=== PATIENT | male | born 1975 | race Caucasian/White ===

== ENCOUNTER 2016-12-24 09:10 | Observation (INO) | payer OTHER ==
[~2016-12-24] VITALS: Ht 195.6 cm; Wt 128.6 kg
[~2016-12-24 09:10] MED LIST: ATROVENT 00.5 MG/2.5 IH; BUSPAR10 MG PO; CARAFATE1 GM PO; CELEXA20 MG PO; CELEXA40 MG PO; CITALOPRAM HBR20 MG PO; CLONAZEPAM0.5 MG PO; CLONAZEPAM1 MG PO; COMBIVENT RESPIM4 GM IH; COUMADIN10 MG PO; DESYREL100 MG PO; DOCUSATE SODIU100 MG PO; GEODON20 MG PO; HYDROCODON-ACE1 EAC7 PO; KLONOPIN0.5 M1 PO; KLONOPIN1 MG PO; LIBRIUM25 MG PO; MIRALAX17 GM PO; NEXIUM40 MG PO; NORCO 5/3251 TABLET PO; OMEPRAZOLE40 M1 PO; PERCOCET 5/31 TABLET PO; PREDNISONE20 MG PO; PRILOSEC40 MG PO; PROMETHAZINE12.5 M1 PO; RANITIDINE HCL150 MG PO; SUCRALFATE1 GM PO; TYLENOL REGULA325 MG PO; WARFARIN SODIUM10 MG PO; WARFARIN SODIUM3 MG PO; WARFARIN SODIUM6 MG PO; XANAX1 MG PO; ZANTAC150 MG PO
[2016-12-24] MEDS ORDERED: WARFARIN SODIUM1 MG PO ×2 (09:39→14:52)
[2016-12-24 09:55] LABS: EOSINOPHIL (%) 0.7 % (0-5); EOSINOPHIL COUNT 0.1 K/uL (0-0.3); HEMATOCRIT 44.4 % (38.0-50.0); IMMATURE GRANULOCYTE (%) 1.3 % (0.0-0.7); IMMATURE GRANULOCYTE COUNT 1.1 K/uL; LYMPHOCYTE COUNT 2.2 K/uL (1.0-2.8); MCHC 35.6 G/DL (30.0-36.0); MCV 84.4 FL (86-99); MEAN PLAT.VOLUME 10.7 uM^3 (9.0-12.4); MONOCYTE (%) 8.2 % (3-12); MONOCYTE COUNT 0.7 K/uL (0-0.8); NEUTROPHIL (%) 63.1 % (45-76); NEUTROPHIL COUNT 5.2 K/uL (1.8-6.4); PLATELET COUNT 288 K/uL (156-360); RBC DIS.WIDTH-SD 46.3 % (39-53); RED BLOOD COUNT 5.26 M/uL (4.00-5.50); WHITE BLOOD COUNT 8.3 K/uL (4.1-10.2)
[2016-12-24 10:06] LABS: CHLORIDE 105 mEq/L (99-109); SODIUM 137 mEq/L (136-147)
[2016-12-24 10:07] LABS: GLUCOSE 90 mg/dL (70-99)
[2016-12-24 10:09] LABS: ANION GAP 15 MEQ/L (2-14)
[2016-12-24 10:11] LABS: GFR ESTIMATE (CALCULATED) > 59 mL/min/; SERUM ETHYL ALCOHOL 76 mg/dL
[2016-12-24 10:12] LABS: UREA NITROGEN (BUN) 9 mg/dL (9-23)
[2016-12-24 10:14] LABS: CREATINE KINASE 141 IU/L (1-294)
[2016-12-24 10:15] LABS: D-DIMER ELISA < 0.15 mg/L FEU (< 0.57); INTER. NORMALIZED RATIO 2.5; PROTHROMBIN TIME 25.9 (9.2-11.2); PTT 37.7 (25-32)
[2016-12-24 10:19] LABS: TROP-I INTERPRETATION NEGATIVE; TROPONIN-I < 0.01 ng/mL (0.0-0.30)
[2016-12-24 12:52] LABS: TROP-I INTERPRETATION NEGATIVE; TROPONIN-I < 0.01 ng/mL (0.0-0.30)
[2016-12-24] MEDS ORDERED: SERTRALINE HCL100 MG PO (12:52)
[2016-12-24] MEDS ORDERED: GABAPENTIN300 MG PO (12:54)
[2016-12-24] MEDS ORDERED: TIZANIDINE HCL4 M1 PO (12:54)
[2016-12-24] MEDS ORDERED: COMBIVENT RESPIM4 GM IH (12:59)
[2016-12-24] MEDS ORDERED: NEURONTIN300 MG PO (13:02)
[2016-12-24] MEDS ORDERED: WARFARIN SODIUM10 MG PO (14:52)
[2016-12-24] MEDS ORDERED: DEPAKOTE500 MG PO (14:57)
[2016-12-24 17:18] VITALS: BP 137/83
[2016-12-24 19:30] VITALS: BP 136/80
[2016-12-24 19:47] LABS: TROP-I INTERPRETATION NEGATIVE; TROPONIN-I < 0.01 ng/mL (0.0-0.30)
[2016-12-24 20:44] VITALS: BP 134/79
[2016-12-24 23:42] VITALS: BP 117/72
[2016-12-25 00:49] LABS: TROP-I INTERPRETATION NEGATIVE; TROPONIN-I < 0.01 ng/mL (0.0-0.30)
[2016-12-25 04:28] VITALS: BP 102/55
[2016-12-25 06:24] LABS: INTER. NORMALIZED RATIO 2.9; PROTHROMBIN TIME 30.8 (9.2-11.2)
[2016-12-25 07:37] VITALS: BP 112/76
[2016-12-25] MEDS ORDERED: LIPITOR40 MG PO (09:38)
[2016-12-25 11:20] VITALS: BP 102/62
== END 2016-12-25 10:56 | disposition home or self-care (01) ==
LOC: EME 09:10 → EDOF 14:31 → 5WEST 14:31 → EDOF 14:31 → 5WEST 17:07
PROVIDERS: Emergency Medicine; Internal Medicine
DX: R07.9 Chest pain, unspecified (principal); D68.51 Activated protein C resistance; Z86.711 Personal history of pulmonary embolism; G89.29 Other chronic pain; F41.8 Other specified anxiety disorders; Z79.01 Long term (current) use of anticoagulants; K22.70 Barrett's esophagus without dysplasia; K21.9 Gastro-esophageal reflux disease without esophagitis; J44.9 Chronic obstructive pulmonary disease, unspecified; F17.200 Nicotine dependence, unspecified, uncomplicated; F43.10 Post-traumatic stress disorder, unspecified; F10.21 Alcohol dependence, in remission; Z81.8 Family history of other mental and behavioral disorders; Z88.1 Allergy status to other antibiotic agents; Z91.030 Bee allergy status
CPT/HCPCS: 71010; 71020; 80048; 80306 90; 82550; 84484; 85025; 85379; 85610; 85730; 93005; 94640; 99202; 99281; 99285; G0378; G0480; J3010

== ENCOUNTER 2017-01-14 09:52 | Emergency (ER) | payer OTHER ==
[~2017-01-14] VITALS: Ht 195.6 cm; Wt 132.1 kg
[~2017-01-14 09:52] MED LIST changes: +DEPAKOTE500 MG PO; +GABAPENTIN300 MG PO; +LIPITOR40 MG PO; +NEURONTIN300 MG PO; +SERTRALINE HCL100 MG PO; +TIZANIDINE HCL4 M1 PO; +WARFARIN SODIUM1 MG PO
[2017-01-14 11:02] LABS: HEMATOCRIT 44.2 % (38.0-50.0); MCH 29.9 PG (29.0-34.0); MCHC 34.2 G/DL (30.0-36.0); MCV 87.5 FL (86-99); PLATELET COUNT 225 K/uL (156-360); RBC DIS.WIDTH-CV 15.2 % (11.8-14.6); RBC DIS.WIDTH-SD 48.6 % (39-53); RED BLOOD COUNT 5.05 M/uL (4.00-5.50); WHITE BLOOD COUNT 7.8 K/uL (4.1-10.2)
[2017-01-14 11:06] LABS: ANION GAP 10 MEQ/L (2-14); CHLORIDE 108 MEQ/L (99-109); GFR ESTIMATE (CALCULATED) > 59 mL/min/; GLUCOSE 97 mg/dL (70-99); SAMPLE HEMOLYSIS CHECK 1; SAMPLE ICTERIC CHECK 0; SAMPLE LIPEMIA CHECK 0; SODIUM 140 MEQ/L (136-147); UREA NITROGEN (BUN) 13 mg/dL (9-23)
[2017-01-14 11:07] LABS: POTASSIUM 4.3 MEQ/L (3.7-5.4)
[2017-01-14 12:11] LABS: ADD MIUA? YES; BILIRUBIN NEGATIVE; BLOOD SMALL; COLOR STRAW ((YELLOW)); GLUCOSE (STRIP) NEGATIVE; KETONES NEGATIVE; LEUKOCYTES NEGATIVE; NITRITE NEGATIVE; PROTEIN (STRIP) NEGATIVE; SPECIFIC GRAVITY 1.005 (1.000-1.030); UROBILINOGEN 0.2 MG/DL (0.2-1.0)
[2017-01-14 12:25] LABS: BACTERIA NONE SEEN /HPF; EPITHELIAL CELLS NONE SEEN /HPF; MUCUS NONE SEEN /LPF; RED BLOOD CELLS 0-5 /HPF (0-5); WHITE BLOOD CELLS 0-5 /HPF (0-5)
[2017-01-14 13:05] LABS: INTER. NORMALIZED RATIO 2.2; PROTHROMBIN TIME 22.9 (9.2-11.2); PTT 32.5 (25-32)
[2017-01-14 13:45] VITALS: BP 134/93
== END 2017-01-14 13:45 | disposition home or self-care (01) ==
LOC: RME 09:52 → EME 09:52 → RME 13:45
PROVIDERS: Physician Assistant
DX: R04.2 Hemoptysis (principal); R10.12 Left upper quadrant pain; Z79.01 Long term (current) use of anticoagulants; D68.51 Activated protein C resistance; Z86.711 Personal history of pulmonary embolism; Z86.718 Personal history of other venous thrombosis and embolism; J44.9 Chronic obstructive pulmonary disease, unspecified; J45.909 Unspecified asthma, uncomplicated; F17.200 Nicotine dependence, unspecified, uncomplicated
CPT/HCPCS: 71275; 74177; 80048; 81003; 85025; 85027; 85610; 85730; 86850; 86900; 86901; 99281; 99284

== ENCOUNTER 2017-02-12 18:22 | Emergency (ER) | payer OTHER ==
[~2017-02-12] VITALS: Ht 195.6 cm; Wt 131.8 kg
[2017-02-12 22:06] LABS: EOSINOPHIL (%) 0.8 % (0-5); EOSINOPHIL COUNT 0.1 K/uL (0-0.3); HEMATOCRIT 40.5 % (38.0-50.0); IMMATURE GRANULOCYTE (%) 0.7 % (0.0-0.7); IMMATURE GRANULOCYTE COUNT 0.1 K/uL; INSTRUMENT ABS NEUTROPHIL CT 5.8 K/uL; LYMPHOCYTE COUNT 2.7 K/uL (1.0-2.8); MCHC 33.8 G/DL (30.0-36.0); MCV 88.6 FL (86-99); MEAN PLAT.VOLUME 11.1 uM^3 (9.0-12.4); MONOCYTE (%) 10.9 % (3-12); MONOCYTE COUNT 1.1 K/uL (0-0.8); NEUTROPHIL (%) 59.4 % (45-76); NEUTROPHIL COUNT 5.8 K/uL (1.8-6.4); PLATELET COUNT 221 K/uL (156-360); RBC DIS.WIDTH-CV 16.2 % (11.8-14.6); RBC DIS.WIDTH-SD 52.8 % (39-53); RED BLOOD COUNT 4.57 M/uL (4.00-5.50); WHITE BLOOD COUNT 9.7 K/uL (4.1-10.2)
[2017-02-12 22:14] LABS: CHLORIDE 104 mEq/L (99-109); POTASSIUM 3.7 mEq/L (3.7-5.4); SODIUM 138 mEq/L (136-147)
[2017-02-12 22:17] LABS: GLUCOSE 73 mg/dL (70-99)
[2017-02-12 22:18] LABS: ANION GAP 13 MEQ/L (2-14)
[2017-02-12 22:19] LABS: TOTAL BILIRUBIN 0.3 mg/dL (0.0-1.0)
[2017-02-12 22:20] LABS: ALKALINE PHOSPHATASE 77 IU/L (3-129)
[2017-02-12 22:21] LABS: GFR ESTIMATE (CALCULATED) > 59 mL/min/
[2017-02-12 22:22] LABS: DIRECT BILIRUBIN 0.1 mg/dL (0.0-0.3); UREA NITROGEN (BUN) 18 mg/dL (9-23)
[2017-02-12 22:24] LABS: LIPASE 29 U/L (1.0-51.0)
[2017-02-12 23:02] LABS: INTER. NORMALIZED RATIO 2.2; PROTHROMBIN TIME 22.8 (9.2-11.2); PTT 36.6 (25-32)
[2017-02-13 07:03] VITALS: BP 135/80
== END 2017-02-13 07:07 ==
LOC: EME 18:22
PROVIDERS: Emergency Medicine
DX: R56.9 Unspecified convulsions (principal); F10.20 Alcohol dependence, uncomplicated; S80.211A Abrasion, right knee, initial encounter; S00.81XA Abrasion of other part of head, initial encounter; W18.39XA Other fall on same level, initial encounter; R00.0 Tachycardia, unspecified; D68.51 Activated protein C resistance; Z86.711 Personal history of pulmonary embolism; Z86.718 Personal history of other venous thrombosis and embolism; Z79.01 Long term (current) use of anticoagulants; J44.9 Chronic obstructive pulmonary disease, unspecified; J45.909 Unspecified asthma, uncomplicated; F17.200 Nicotine dependence, unspecified, uncomplicated
CPT/HCPCS: 70450; 72125; 73564; 80048; 80076; 83690; 85025; 85610; 85730; 99281; 99284; J1200; J2060; J2765; J7030

== ENCOUNTER 2017-02-14 11:35 | Emergency (ER) | payer OTHER ==
[~2017-02-14] VITALS: Ht 195.6 cm; Wt 132.0 kg
[2017-02-14 12:40] VITALS: BP 131/87
== END 2017-02-14 12:40 | disposition home or self-care (01) ==
LOC: EME 11:35
DX: F41.9 Anxiety disorder, unspecified (principal); Z73.3 Stress, not elsewhere classified; J44.9 Chronic obstructive pulmonary disease, unspecified; J45.909 Unspecified asthma, uncomplicated; Z86.711 Personal history of pulmonary embolism; Z86.718 Personal history of other venous thrombosis and embolism; Z79.01 Long term (current) use of anticoagulants; F17.200 Nicotine dependence, unspecified, uncomplicated
CPT/HCPCS: 99281; 99283

== ENCOUNTER 2017-04-24 13:44 | Emergency (ER) | payer OTHER ==
[~2017-04-24] VITALS: Ht 195.6 cm; Wt 138.3 kg
[2017-04-24 15:22] LABS: MCH 28.5 PG (29.0-34.0); MCHC 33.3 G/DL (30.0-36.0); MCV 85.7 FL (86-99); MEAN PLAT.VOLUME 10.3 uM^3 (9.0-12.4); PLATELET COUNT 275 K/uL (156-360); RBC DIS.WIDTH-CV 15.3 % (11.8-14.6); RBC DIS.WIDTH-SD 47.8 % (39-53); RED BLOOD COUNT 5.37 M/uL (4.00-5.50); WHITE BLOOD COUNT 9.3 K/uL (4.1-10.2)
[2017-04-24 15:30] LABS: CHLORIDE 105 mEq/L (99-109); POTASSIUM 4.1 mEq/L (3.7-5.4); SODIUM 140 mEq/L (136-147)
[2017-04-24 15:32] LABS: GLUCOSE 77 mg/dL (70-99)
[2017-04-24 15:33] LABS: ANION GAP 11 MEQ/L (2-14)
[2017-04-24 15:35] LABS: SERUM ETHYL ALCOHOL < 10 mg/dL
[2017-04-24 15:36] LABS: GFR ESTIMATE (CALCULATED) > 59 mL/min/
[2017-04-24 15:37] LABS: UREA NITROGEN (BUN) 11 mg/dL (9-23)
[2017-04-24] MEDS ORDERED: ATARAX,VISTARIL50 MG PO (16:06)
[2017-04-24 16:14] LABS: PROTHROMBIN TIME 20.5 (9.2-11.2); PTT 33.1 (25-32)
[2017-04-24 16:25] VITALS: BP 133/79
== END 2017-04-24 16:26 | disposition home or self-care (01) ==
LOC: EME 13:44
DX: F41.9 Anxiety disorder, unspecified (principal); K21.9 Gastro-esophageal reflux disease without esophagitis; Z87.442 Personal history of urinary calculi; F17.200 Nicotine dependence, unspecified, uncomplicated
CPT/HCPCS: 80048; 85027; 85610; 85730; 90839; 99281; 99284; G0480; Q0177

== ENCOUNTER 2017-09-17 12:44 | Inpatient (IN) | payer OTHER ==
[~2017-09-17] VITALS: Ht 195.6 cm; Wt 133.5 kg
[~2017-09-17 12:44] MED LIST changes: +ATARAX,VISTARIL50 MG PO
[2017-09-17 13:45] LABS: EOSINOPHIL (%) 0.7 % (0-5); HEMATOCRIT 41.2 % (38.0-50.0); IMMATURE GRANULOCYTE (%) 0.2 % (0.0-0.7); INSTRUMENT ABS NEUTROPHIL CT 3.7 K/uL; LYMPHOCYTE COUNT 1.7 K/uL (1.0-2.8); MCH 27.8 PG (29.0-34.0); MCHC 32.8 G/DL (30.0-36.0); MCV 84.9 FL (86-99); MONOCYTE (%) 11.3 % (3-12); MONOCYTE COUNT 0.7 K/uL (0-0.8); NEUTROPHIL COUNT 3.7 K/uL (1.8-6.4); PLATELET COUNT 206 K/uL (156-360); RBC DIS.WIDTH-CV 16.2 % (11.8-14.6); RBC DIS.WIDTH-SD 50.3 % (39-53); RED BLOOD COUNT 4.85 M/uL (4.00-5.50); WHITE BLOOD COUNT 6.1 K/uL (4.1-10.2)
[2017-09-17 13:56] LABS: CHLORIDE 104 mEq/L (99-109); POTASSIUM 4.1 mEq/L (3.7-5.4); SODIUM 139 mEq/L (136-147)
[2017-09-17 13:58] LABS: GLUCOSE 108 mg/dL (70-99)
[2017-09-17 13:59] LABS: ANION GAP 11 MEQ/L (2-14)
[2017-09-17 14:00] LABS: TOTAL BILIRUBIN 0.5 mg/dL (0.0-1.0)
[2017-09-17 14:01] LABS: SERUM ETHYL ALCOHOL < 10 mg/dL
[2017-09-17 14:02] LABS: ALKALINE PHOSPHATASE 79 IU/L (3-129); GFR ESTIMATE (CALCULATED) > 59 mL/min/
[2017-09-17 14:03] LABS: DIRECT BILIRUBIN 0.2 mg/dL (0.0-0.3)
[2017-09-17 14:04] LABS: UREA NITROGEN (BUN) 7 mg/dL (9-23)
[2017-09-17 14:05] LABS: SALICYLATE < 5.0 MG/DL (15-30)
[2017-09-17 14:08] LABS: ADD MIUA? YES; BILIRUBIN NEGATIVE; BLOOD SMALL; COLOR YELLOW ((YELLOW)); GLUCOSE (STRIP) NEGATIVE; KETONES NEGATIVE; LEUKOCYTES NEGATIVE; NITRITE NEGATIVE; PROTEIN (STRIP) NEGATIVE
[2017-09-17 14:14] LABS: INTER. NORMALIZED RATIO 1.9
[2017-09-17 14:20] LABS: BACTERIA NONE SEEN /HPF; EPITHELIAL CELLS NONE SEEN /HPF; MUCUS TRACE /LPF; RED BLOOD CELLS 0-5 /HPF (0-5); WHITE BLOOD CELLS 0-5 /HPF (0-5)
[2017-09-17 14:22] LABS: ADD MEDTOX COMMENT Y; AMPHETAMINE NEGATIVE (500 ng/mL); BARBITURATES PRESUMPTIVE POSITIVE (200 ng/mL); BENZODIAZEPINES PRESUMPTIVE POSITIVE (150 ng/mL); COCAINE NEGATIVE (150 ng/mL); INTERNAL CONTROLS VALID? YES; METHADONE NEGATIVE (200 ng/mL); METHAMPHETAMINE NEGATIVE (500 ng/mL); OPIATES (MORPHINE) NEGATIVE (100 ng/mL); OXYCODONE NEGATIVE (100 ng/mL); PHENCYCLIDINE NEGATIVE (25 ng/mL); PROPOXYPHENE NEGATIVE (300 ng/mL); THC CANNABINOIDS NEGATIVE (50 ng/mL); TRICYCLIC ANTIDEPRESSANTS NEGATIVE (300 ng/mL)
[2017-09-17 15:01] LABS: BENZODIAZEPINES, URINE SCREEN POSITIVE (200 ng/mL)
[2017-09-17] MEDS ORDERED: LIPITOR40 MG PO (16:00)
[2017-09-17 17:02] VITALS: BP 129/80
[2017-09-17 23:36] VITALS: BP 119/81
[2017-09-18 04:36] VITALS: BP 110/76
[2017-09-18 06:24] LABS: ANION GAP 7 MEQ/L (2-14); CHLORIDE 108 MEQ/L (99-109); GFR ESTIMATE (CALCULATED) > 59 mL/min/; GLUCOSE 94 mg/dL (70-99); POTASSIUM 3.7 MEQ/L (3.7-5.4); SAMPLE HEMOLYSIS CHECK 0; SAMPLE ICTERIC CHECK 0; SAMPLE LIPEMIA CHECK 0; SODIUM 141 MEQ/L (136-147); UREA NITROGEN (BUN) 10 mg/dL (9-23)
[2017-09-18 08:00] VITALS: BP 124/91
[2017-09-18 08:39] LABS: PROTHROMBIN TIME 22.5 SEC (10.2-12.9)
[2017-09-18 11:37] VITALS: BP 132/87
[2017-09-18 16:26] VITALS: BP 116/73
[2017-09-18 19:56] VITALS: BP 127/78
[2017-09-18 23:45] VITALS: BP 162/70
[2017-09-19 06:30] LABS: INTER. NORMALIZED RATIO 2.1; PROTHROMBIN TIME 24.1 SEC (10.2-12.9)
[2017-09-19 08:18] VITALS: BP 121/83
[2017-09-19 12:22] VITALS: BP 110/72
[2017-09-19 16:38] VITALS: BP 112/74
[2017-09-19 19:32] VITALS: BP 117/65
[2017-09-19 23:46] VITALS: BP 116/64
[2017-09-20 06:54] LABS: INTER. NORMALIZED RATIO 2.5; PROTHROMBIN TIME 28.4 SEC (10.2-12.9)
[2017-09-20 07:05] LABS: ANION GAP 8 MEQ/L (2-14); CHLORIDE 108 MEQ/L (99-109); GFR ESTIMATE (CALCULATED) > 59 mL/min/; GLUCOSE 88 mg/dL (70-99); POTASSIUM 4.1 MEQ/L (3.7-5.4); SAMPLE HEMOLYSIS CHECK 0; SAMPLE ICTERIC CHECK 0; SAMPLE LIPEMIA CHECK 0; SODIUM 142 MEQ/L (136-147); UREA NITROGEN (BUN) 14 mg/dL (9-23)
[2017-09-20 07:39] VITALS: BP 109/65
[2017-09-20 13:10] VITALS: BP 106/65
[2017-09-20 16:00] VITALS: BP 114/62
[2017-09-20 19:45] VITALS: BP 94/50
[2017-09-20 20:10] VITALS: BP 117/71
[2017-09-20 23:43] VITALS: BP 105/64
[2017-09-21 03:52] VITALS: BP 92/55
[2017-09-21 06:21] LABS: INTER. NORMALIZED RATIO 2.6; PROTHROMBIN TIME 29.8 SEC (10.2-12.9)
[2017-09-21 07:50] VITALS: BP 118/80
[2017-09-21 17:42] VITALS: BP 123/74
[2017-09-21 23:48] VITALS: BP 118/67
[2017-09-22 06:34] LABS: INTER. NORMALIZED RATIO 3.2; PROTHROMBIN TIME 36.3 SEC (10.2-12.9)
[2017-09-22 07:58] VITALS: BP 123/76
[2017-09-22 08:34] LABS: POINT-OF-CARE METER ID UU14188625
[2017-09-22 09:38] VITALS: BP 117/76
[2017-09-22 09:51] LABS: POINT-OF-CARE METER ID UU14188625
[2017-09-22 16:06] VITALS: BP 112/73
[2017-09-22 23:39] VITALS: BP 116/75
[2017-09-23 06:24] LABS: INTER. NORMALIZED RATIO 2.7; PROTHROMBIN TIME 30.5 SEC (10.2-12.9)
[2017-09-23 06:59] VITALS: BP 108/61
[2017-09-23] MEDS ORDERED: NICOTINE PATCH1 EAC2 TD ×2 (08:57→11:03)
[2017-09-23] MEDS ORDERED: THERAGRAN1 TABLET PO ×2 (08:57→11:03)
[2017-09-23] MEDS ORDERED: Thiamine,Vitamin B1 PO ×2 (08:57→11:03)
[2017-09-23] MEDS ORDERED: FOLIC ACID1 MG PO ×2 (08:57→11:03)
[2017-09-23] MEDS ORDERED: ZOFRAN4 MG PO ×2 (08:57→11:03)
[2017-09-23] MEDS ORDERED: KLONOPIN1 MG PO (11:14)
[2017-09-23] MEDS ORDERED: NORCO 5/3251 TABLET PO (11:14)
== END 2017-09-23 14:50 | disposition home or self-care (01) | DRG 897 ==
LOC: EME 12:44 → 5SOUTH 14:43 → EDOF 14:43 → ENRESERV 14:45 → 5SOUTH 16:29
PROVIDERS: Emergency Medicine; Internal Medicine
DX: F10.239 Alcohol dependence with withdrawal, unspecified (principal); R45.851 Suicidal ideations; F33.1 Major depressive disorder, recurrent, moderate; D68.59 Other primary thrombophilia; D68.51 Activated protein C resistance; Y90.0 Blood alcohol level of less than 20 mg/100 ml; Z62.810 Personal history of physical and sexual abuse in childhood; E16.2 Hypoglycemia, unspecified; F17.210 Nicotine dependence, cigarettes, uncomplicated; F41.8 Other specified anxiety disorders; F43.12 Post-traumatic stress disorder, chronic; G89.29 Other chronic pain; J43.9 Emphysema, unspecified; K21.9 Gastro-esophageal reflux disease without esophagitis; E66.9 Obesity, unspecified; G44.89 Other headache syndrome; K22.70 Barrett's esophagus without dysplasia; F43.21 Adjustment disorder with depressed mood; M19.90 Unspecified osteoarthritis, unspecified site; Z59.0 Homelessness; Z79.01 Long term (current) use of anticoagulants; Z86.711 Personal history of pulmonary embolism; Z87.442 Personal history of urinary calculi; Z90.49 Acquired absence of other specified parts of digestive tract; Z56.0 Unemployment, unspecified; Z68.34 Body mass index [BMI] 34.0-34.9, adult
CPT/HCPCS: 80048; 80076; 81003; 82948; 83735; 84999; 85025; 85610; 99281; 99285; G0480; J2060; J2405; J3411; J7042